=== PATIENT | female | born 1975 | race Caucasian/White ===

== ENCOUNTER 2017-10-29 12:48 | Emergency (ER) | payer MEDICAID ==
[~2017-10-29] VITALS: Ht 154.9 cm; Wt 84.5 kg
[2017-10-29 15:49] VITALS: BP 142/72
== END 2017-10-29 15:49 | disposition home or self-care (01) ==
LOC: ED 12:48
DX: G43.909 Migraine, unspecified, not intractable, without status migrainosus (principal); I10 Essential (primary) hypertension
CPT/HCPCS: J1885; J2765